=== PATIENT | male | born 1995 | race Caucasian/White ===

== ENCOUNTER 2018-03-28 10:02 | Emergency (ER) | payer BC ==
--- NOTE | 2018-03-28 10:39 | EDPHY ---
General Time Seen by Provider: 03/28/18 10:33 Narrative: CHIEF COMPLAINT: Fall, wrist and hip pain HISTORY OF PRESENT ILLNESS: Patient presents with complaints of a fall last night with left wrist and left hip pain. He states that he was intoxicated trying to get into his apartment. He was trying and climb the side of the building when he slipped and fell. He says he felt he to 10 ft, landing on his left side. He denies head strike or loss of conscious. He has no headache, neck pain, visual disturbance, nausea vomiting. His only complaints are severe left wrist pain and moderate to severe left hip pain. He says he landed on his feet but has no pain in the feet. Pain in the wrist and hip is severe, 10/10. Worse with weight-bearing and palpation. Does not radiate. No numbness or tingling. No weakness. Minimal improvement rest. He has no chest, back or abdominal pain. No lower extremity complaints at this time. No other associated complaints or modifying factors. REVIEW OF SYSTEMS: 10 systems were reviewed and negative with the exception of the elements mentioned in the history of present illness. PCP: None locally SPECIALISTS: [employer] PAST MEDICAL HISTORY: Uncomplicated PAST SURGICAL HISTORY: No recent surgeries SOCIAL HISTORY: Nonsmoker. Occasional alcohol use. [employer] student. FAMILY HISTORY: Noncontributory EXAMINATION: General Appearance: Alert, no distress Head: normocephalic, atraumatic. No Dinh sign. No raccoon eyes. No depression or deformity. Eyes: Pupils equal and round, no conjunctival pallor or injection. EOM symmetric and painless. No nystagmus ENT, Mouth: Mucous membranes moist. Airway patent Neck: Midline trachea. Normal inspection, supple, non-tender. No crepitus or deformity Respiratory: Lungs are clear to auscultation Cardiovascular: Regular rate and rhythm. No murmur. Symmetric DP pulses 2+. Symmetric radial pulses 2+. Gastrointestinal: Abdomen is soft and nontender. No tympany rigidity. Back: non-tender, no bony abnormalities. No crepitus, step-off or deformity. Neurological: GCS 15. A&O, nonfocal. Light sensory symmetric in the upper lower extremities. Strength is 5/5 in the wrist, interossei, knees, ankles and great toes. Skin: Warm and dry, no rash . No laceration or puncture Extremities: Significant tenderness in the left wrist circumferentially including the snuffbox. There is no tenderness of the left hand or fingers. No tension left forearm or elbow. Range of motion of the elbow symmetric. There is tenderness of the left inguinal fold and left greater trochanter. There is no tenderness of the feet, heels, ankles or shins bilaterally. Compartments are soft in the upper and lower extremities. Psychiatric: Mood and affect normal DIFFERENTIAL DIAGNOSES: Including but not limited to wrist sprain, wrist fracture, wrist dislocation, hip fracture, hip sprain, hip strain, hip dislocation, pelvic fracture, acetabular fracture MDM: 10:40 a.m. Fall from 8-10 ft height with pain in the left wrist and left hip. No head injury. His vital signs are within normal limits. Exam does reveal tenderness in the left wrist and left hip only. X-rays of these areas ordered. I have ordered pain medication. He is resting comfortably in no acute distress. 11:20 a.m. History reveals compact fracture of the right distal radius with no angulation or displacement. There is a nondisplaced ulnar styloid fracture. The pelvic x- ray reveals displaced superior pubic ramus fracture and minimally displaced inferior pubic ramus fracture. We discussed splint and sling further left upper extremity. We discussed using a right sided crutch to brace the left pubic fractures. We discussed follow up with Orthopedics for definitive care. The patient is agreeable this and feels that he can safely go home with this. 11:40 a.m. Patient has ambulated with crutch without difficulty. He is comfortable with discharge home. ED precautions discussed. SUPERVISION: This patient was independently evaluated without direct involvement of or examination by the attending physician. CONSULTATION: Orthopedic referral - History Smoking Status: Current some day smoker - Objective Vital Signs: Initial Vital Signs Temperature (C) 98.4 F 03/28/18 10:09 Heart Rate 111 H 03/28/18 10:09 Respiratory Rate 16 03/28/18 10:09 Blood Pressure 127/79 H 03/28/18 10:09 O2 Sat (%) 96 03/28/18 10:09 O2 Delivery Mode Room Air Allergies/Adverse Reactions: Sulfa (Sulfonamide Antibiotics) Allergy (Verified 03/28/18 10:08) Home Medications: Medication Instructions Recorded Doxycycline Hyclate 03/28/18 Zoloft 25mg (*) 03/28/18 oxyCODONE HCL/ACETAMINOPHEN 1 each PO Q4-6PRN PRN #19 tablet 03/28/18 [Percocet 5-325 mg Tablet] Medications Given: Discontinued Medications Oxycodone/Acetaminophen (Percocet 5/325) 2 tab PO EDNOW ONE Stop: 03/28/18 10:44 Last Admin: 03/28/18 11:07 Dose: 2 tab Departure - Departure Disposition: Home, Routine, Self-Care Clinical Impression: Fracture of radius, distal, left, closed Qualifiers: Encounter type: initial encounter Fracture morphology: unspecified fracture morphology Qualified Code(s): S52.502A - Unspecified fracture of the lower end of left radius, initial encounter for closed fracture Closed fracture of styloid process of left ulna Qualifiers: Encounter type: initial encounter Fracture alignment: nondisplaced Qualified Code(s): S52.615A - Nondisplaced fracture of left ulna styloid process, initial encounter for closed fracture Fracture of left superior pubic ramus Qualifiers: Encounter type: initial encounter Fracture type: closed Qualified Code(s): S32.512A - Fracture of superior rim of left pubis, initial encounter for closed fracture Fracture of left inferior pubic ramus Qualifiers: Encounter type: initial encounter Fracture type: closed Qualified Code(s): S32.592A - Other specified fracture of left pubis, initial encounter for closed fracture Condition: Good Instructions: Wrist Fracture in Adults (ED), Pelvic Fracture (ED) Additional Instructions: 1. Weightbearing as tolerated using a crutch on the right side. 2. Sugar-tong splint and sling and left upper extremity until seen by Orthopedics for definitive care 3. Ibuprofen 600 mg every 6-8 hours 4. Pain medication as prescribed as needed. Do not mix with alcohol or any illicit substance 5. Contact orthopedist Dr. Amin for outpatient definitive care 6. ED precautions for numbness, tingling, weakness, inability to ambulate, intolerable pain Referrals: Manuel Amin MD [Medical Doctor] - As per Instructions Stand Alone Forms: School Excuse Prescriptions: oxyCODONE HCL/ACETAMINOPHEN [Percocet 5-325 mg Tablet] 1 each PO Q4-6PRN PRN # 19 tablet PRN Reason: Pain, Breakthrough
[2018-03-28] MEDS ORDERED: OXYCODONE/APAP 5/325 TAB PO ONE (10:43)
[2018-03-28 12:11] VITALS: BP 108/67
--- NOTE | 2018-03-28 16:17 | ASMTCAGE ---
CAGE Do you feel you ought to Answers: No cut down on your drinking or drug use? Do people annoy you by Answers: No criticizing your drinking or drug use? Do you feel guilty about Answers: No your drinking or drug use? Do you drink or use drugs Answers: No first thing in the morning (Eye Parking Regulation Enforcement Officer)? Date Signed: 03/28/2018 04:12 PM Electronically Signed By:Galdino Mcleod LCSW
--- NOTE | 2018-03-28 16:24 | ASMTLACE ---
LACE Length of stay for Answers: Less than 1 day current admission Acuity / Level of Answers: No Care: Did the patient have an inpatient admission? # of Emergency department Answers: 1-2 visits in the last 6 months Score: 1 Date Signed: 03/28/2018 04:17 PM Electronically Signed By:Galdino Mcleod LCSW
== END 2018-03-28 12:19 | disposition home or self-care (01) ==
PROC: 2W3DX1Z Immobilization of Left Lower Arm using Splint (ICD-10-PCS; principal; 2018-03-28)
DX: S52.572A Other intraarticular fracture of lower end of left radius, initial encounter for closed fracture (principal); S52.615A Nondisplaced fracture of left ulna styloid process, initial encounter for closed fracture; S32.592A Other specified fracture of left pubis, initial encounter for closed fracture; W17.89XA Other fall from one level to another, initial encounter; Y92.038 Other place in apartment as the place of occurrence of the external cause; Y99.8 Other external cause status
CPT/HCPCS: A4565